=== PATIENT | male | born 1975 | race African-American/Black ===

== ENCOUNTER 2017-10-06 05:29 | Observation (INO) ==
[2017-10-06 07:23] LABS: Basophils % 0.4 % (0.0-0.8); Eosinophils # 0.1 10*3/uL (0.0-0.87); Eosinophils % 0.9 % (0.00-10.9); Hematocrit 42.3 VOL% (42.0-52.0); Hemoglobin 14.7 GM/DL (14.0-18.0); Immature Granulocytes % 0.4 %; Immature Granulocytes Absolute 0.03 #; Lymphocytes % 38.7 % (21.2-54.2); Mean Corpuscular HGB Conc 34.8 GM/DL (32-36); Mean Corpuscular Hemoglobin 31 PG (27-34); Mean Corpuscular Volume 88.7 FL (87-102); Mean Platelet Volume 9.7 FL (9.6-12.0); Monocytes # 0.6 10*3/uL (0.11-0.8); Monocytes % 7.5 % (1.7-12.7); Neutrophils % 52.1 % (38.7-73.9); Platelet Count 238 T/CUMM (130-400); Red Blood Count 4.77 MC/CUMM (3.8-5.5); Red Cell Distribution Width 12.5 % (9.3-17.3); White Blood Count 7.7 T/CUMM (4-12)
[2017-10-06 07:43] LABS: Albumin 3.8 G/DL (3.4-5.0); Bilirubin,Total 1.2 MG/DL (0.2-1.0); Calcium 9.4 MG/DL (8.5-10.1); Potassium 3.9 MMOL/L (3.5-5.1); Total Protein 7.5 G/DL (6.4-8.3)
[2017-10-06 07:45] LABS: Troponin I Only 0.054 NG/ML (0.00-0.045)
[2017-10-06] MEDS ORDERED: ASPIRIN CHEW 81 MG TABLET PO STA (08:37)
[2017-10-06] MEDS ORDERED: ASPIRIN 325 MG TABLET ONE (09:14)
[2017-10-06] MEDS ORDERED: LORazepam 2 MG/1 ML VIAL ONE (11:07)
[2017-10-06 11:11] LABS: Barbiturates Screen,Urine Negative (Negative); Benzodiazepines Screen,Urine Negative (Negative); Cannabinoid Screen,Urine Negative (Negative); Opiate Screen,Urine Negative (Negative); Phencyclidine Screen,Urine Negative (Negative)
[2017-10-06] MEDS ORDERED: LORazepam 2 MG/1 ML VIAL IV STA (11:13)
[2017-10-06] MEDS ORDERED: ONDANSETRON 4 MG/2 ML VIAL IV PRN (12:59)
[2017-10-06] MEDS ORDERED: ACETAMINOPHEN 325 MG TABLET PO PRN (12:59)
[2017-10-06] MEDS ORDERED: MORPHINE 4 MG/1 ML VIAL IV PRN (12:59)
[2017-10-06] MEDS: ENOXAPARIN 40 MG/0.4 ML SYRINGE SUBCUT SCH (13:57)
[2017-10-06] MEDS ORDERED: chlordiazePOXIDE 25 MG CAPSULE PO PRN (15:27)
[2017-10-06] MEDS ORDERED: LORazepam 2 MG/1 ML VIAL IV PRN (15:27)
[2017-10-06] MEDS ORDERED: LURASIDONE 40 MG TABLET PO SCH (21:00)
[2017-10-07 01:32] LABS: Basophils % 0.3 % (0.0-0.8); Eosinophils # 0.1 10*3/uL (0.0-0.87); Hematocrit 40.9 VOL% (42.0-52.0); Hemoglobin 14.2 GM/DL (14.0-18.0); Immature Granulocytes % 0.6 %; Immature Granulocytes Absolute 0.04 #; Lymphocytes # 2.8 10*3/uL (1.4-4.0); Lymphocytes % 41.9 % (21.2-54.2); Mean Corpuscular HGB Conc 34.7 GM/DL (32-36); Mean Corpuscular Hemoglobin 31 PG (27-34); Mean Corpuscular Volume 89.9 FL (87-102); Mean Platelet Volume 9.7 FL (9.6-12.0); Monocytes # 0.6 10*3/uL (0.11-0.8); Monocytes % 9.4 % (1.7-12.7); Neutrophils % 45.8 % (38.7-73.9); Platelet Count 228 T/CUMM (130-400); Red Blood Count 4.55 MC/CUMM (3.8-5.5); Red Cell Distribution Width 12.5 % (9.3-17.3); White Blood Count 6.6 T/CUMM (4-12)
[2017-10-07 02:09] LABS: Albumin 3.4 G/DL (3.4-5.0); Calcium 9.1 MG/DL (8.5-10.1); Osmolality,Calculated 275.8 MOS/KG (273-304); Potassium 4.2 MMOL/L (3.5-5.1); Thyroid Stimulating Hormone 0.936 uIU/ml (0.358-3.74); Total Protein 6.3 G/DL (6.4-8.3)
[2017-10-07] MEDS ORDERED: PANTOPRAZOLE 40 MG TABLET PO SCH (09:00)
[2017-10-07] MEDS ORDERED: THIAMINE 100 MG TABLET PO SCH (09:00)
[2017-10-07] MEDS ORDERED: FOLIC ACID 1 MG TABLET PO SCH (09:00)
[2017-10-07] MEDS ORDERED: DESVENLAFAXINE 50 MG TABLET PO SCH (09:00)
[2017-10-07] MEDS ORDERED: MULTIVITAMIN (CENTRUM) TABLET PO SCH (09:00)
[2017-10-07] MEDS: ENOXAPARIN 40 MG/0.4 ML SYRINGE SUBCUT SCH (12:26)
[2017-10-07 17:20] VITALS: BP 133/59
== END 2017-10-07 18:05 ==
LOC: EDBD → EDUNIT# → N.EDINP 05:29 → N.ED 05:29 → N.TELES 13:00
PROVIDERS: ADMIT Family Medicine; ATTEND Family Medicine